=== PATIENT | female | born 1980 | race Caucasian/White ===

== ENCOUNTER 2019-04-27 04:50 | Emergency (ER) | payer MEDICAID ==
[~2019-04-27] VITALS: Ht 170.2 cm; Wt 65.0 kg
[2019-04-27] MEDS ORDERED: SODIUM CHLORIDE 0.9% 1,000 ML IV ONE (05:20)
[2019-04-27 05:57] LABS: BASOPHILS % 0.4 % (0.0-2.0); EOSINOPHILS % 2.1 % (0.0-5.0); HEMATOCRIT. 33.6 % (36.0-48.0); HEMOGLOBIN. 10.9 g/dL (12.0-16.0); LYMPHOCYTES % 13.7 % (20.0-50.0); MEAN CORPUSCULAR HEMOGLOBIN 23.3 pg (28.0-32.0); MEAN CORPUSCULAR VOLUME 72.1 fL (81.0-99.0); MEAN PLATELET VOLUME 8.7 fl (7.4-10.4); MONOCYTES % 6.1 % (2.0-8.0); NEUTROPHILS % 77.7 % (40.0-76.0); PLATELET 259 x1000/uL (130-400); RED BLOOD CELL COUNT 4.66 mill/uL (4.2-5.4)
[2019-04-27 06:00] LABS: CHLORIDE 107 mEq/L (98-107)
[2019-04-27 06:02] LABS: CLARITY URINE CLEAR (CLEAR); COLOR URINE YELLOW (YELLOW); KETONES URINE NEGATIVE (NEGATIVE); LEUKOCYTE ESTERASE URINE NEGATIVE (NEGATIVE); NITRITE URINE NEGATIVE (NEGATIVE); OCCULT BLOOD URINE TRACE (NEGATIVE); PROTEIN URINE NEGATIVE (NEGATIVE); SPECIFIC GRAVITY URINE 1.009 (1.005-1.030); UROBILINOGEN URINE 0.2 E.U./dL (0.2-1.0)
[2019-04-27 06:09] LABS: INR 1.1; PROTHROMBIN TIME 10.9 sec (9.6-11.0)
[2019-04-27] MEDS ORDERED: MORPHINE SULFATE 4 MG/ML CPJ (NOT FOR IM USE) IV ONE (06:15)
[2019-04-27] MEDS ORDERED: ONDANSETRON HCL 4MG/2ML INJ IV ONE (06:15)
[2019-04-27] MEDS ORDERED: DICYCLOMINE 10 MG/5 ML ORAL SYR PO STA (06:25)
[2019-04-27] MEDS ORDERED: MAGNESIUM/ALUMINUM HYDROXIDE/SIMETHICONE 30ML UDC PO STA (06:25)
[2019-04-27] MEDS ORDERED: FAMOTIDINE 20MG/2ML VIAL IV STA (06:25)
[2019-04-27] MEDS ORDERED: VISCOUS LIDOCAINE 2% 15 ML UDC PO STA (06:25)
[2019-04-27 06:58] LABS: HCG SCREEN NEGATIVE
[2019-04-27 09:49] VITALS: BP 122/80
== END 2019-04-27 10:02 | disposition home or self-care (01) ==
LOC: ER 06:41
DX: R10.84 Generalized abdominal pain (principal); I10 Essential (primary) hypertension; Z87.11 Personal history of peptic ulcer disease; Z88.6 Allergy status to analgesic agent
CPT/HCPCS: 36415; 74176; 80053; 81003; 81025; 83690; 84703; 85025; 85610; 96374; 96375; 99284; J2270; J2405; J3490; J7030

== ENCOUNTER 2019-05-30 08:47 | Emergency (ER) | payer MEDICAID ==
[~2019-05-30] VITALS: Ht 162.6 cm; Wt 78.0 kg
[2019-05-30] MEDS ORDERED: SUMATRIPTAN SUCCINATE 25MG TABLET PO ONE (09:30)
[2019-05-30] MEDS ORDERED: DIPHENHYDRAMINE 50MG/ML VIAL IV ONE ×2 (09:30→10:45)
[2019-05-30] MEDS ORDERED: SODIUM CHLORIDE 0.9% 1,000 ML IV ONE (09:30)
[2019-05-30] MEDS ORDERED: METOCLOPRAMIDE HCL 10MG/2ML VIAL IV ONE (09:30)
[2019-05-30 10:26] LABS: BASOPHILS % 0.5 % (0.0-2.0); EOSINOPHILS % 2.7 % (0.0-5.0); HEMATOCRIT. 32.6 % (36.0-48.0); HEMOGLOBIN. 10.7 g/dL (12.0-16.0); LYMPHOCYTES % 28.1 % (20.0-50.0); MEAN CORPUSCULAR HEMOGLOBIN 23.7 pg (28.0-32.0); MEAN CORPUSCULAR VOLUME 71.9 fL (81.0-99.0); MEAN PLATELET VOLUME 8.6 fl (7.4-10.4); MONOCYTES % 7.1 % (2.0-8.0); NEUTROPHILS % 61.6 % (40.0-76.0); PLATELET 271 x1000/uL (130-400); RED BLOOD CELL COUNT 4.53 mill/uL (4.2-5.4); RED CELL DISTRIBUTION WIDTH 16.8 % (11.6-14.6)
[2019-05-30 10:30] LABS: CHLORIDE 127 mEq/L (98-107)
[2019-05-30] MEDS ORDERED: LORAZEPAM 2MG/ML CPJ IV ONE (10:45)
[2019-05-30] MEDS ORDERED: KCL 20MEQ/100ML PREMIX 100 ML IV ONE (11:00)
[2019-05-30] MEDS ORDERED: POTASSIUM CHLORIDE 20MEQ TABLET SR PO ONE ×2 (11:00→13:30)
[2019-05-30] MEDS ORDERED: IOHEXOL-350 100 ML BOTTLE ONE (14:15)
[2019-05-30 15:50] VITALS: BP 123/74
== END 2019-05-30 15:51 | disposition home or self-care (01) ==
LOC: ER 08:47
DX: R51 Headache (principal); I10 Essential (primary) hypertension; Z86.79 Personal history of other diseases of the circulatory system; Z88.5 Allergy status to narcotic agent; Z79.899 Other long term (current) drug therapy
CPT/HCPCS: 36415; 70496; 80048; 81025; 82310; 85025; 96374; 96375; 96376; 99284; J1200; J2060; J2765; J3480; J7030; Q9967; Z7610

== ENCOUNTER 2019-06-15 00:32 | Emergency (ER) | payer MEDICAID ==
[~2019-06-15] VITALS: Ht 157.5 cm; Wt 76.0 kg
[2019-06-15] MEDS ORDERED: SODIUM CHLORIDE 0.9% 1,000 ML IV ONE (06:30)
[2019-06-15] MEDS ORDERED: KETOROLAC 30MG/ML VIAL IV STA (06:30)
[2019-06-15 08:23] LABS: CLARITY URINE CLEAR (CLEAR); COLOR URINE YELLOW (YELLOW); KETONES URINE NEGATIVE (NEGATIVE); LEUKOCYTE ESTERASE URINE NEGATIVE (NEGATIVE); NITRITE URINE NEGATIVE (NEGATIVE); OCCULT BLOOD URINE NEGATIVE (NEGATIVE); PH URINE 5.5 (4.5-8.0); PROTEIN URINE NEGATIVE (NEGATIVE); SPECIFIC GRAVITY URINE 1.017 (1.005-1.030); UROBILINOGEN URINE 0.2 E.U./dL (0.2-1.0)
[2019-06-15 09:41] LABS: BASOPHILS % 0.6 % (0.0-2.0); HEMATOCRIT. 31.8 % (36.0-48.0); HEMOGLOBIN. 10.4 g/dL (12.0-16.0); LYMPHOCYTES % 26.2 % (20.0-50.0); MEAN CORPUSCULAR HEMOGLOBIN 23.2 pg (28.0-32.0); MEAN CORPUSCULAR VOLUME 71.3 fL (81.0-99.0); MEAN PLATELET VOLUME 8.8 fl (7.4-10.4); NEUTROPHILS % 62.2 % (40.0-76.0); PLATELET 222 x1000/uL (130-400); RED BLOOD CELL COUNT 4.46 mill/uL (4.2-5.4); RED CELL DISTRIBUTION WIDTH 16.5 % (11.6-14.6)
[2019-06-15] MEDS ORDERED: ACETAMINOPHEN 325MG TABLET PO ONE (09:45)
[2019-06-15 09:47] LABS: PROTHROMBIN TIME 10.6 sec (9.6-11.0)
[2019-06-15 09:48] LABS: CHLORIDE 109 mEq/L (98-107)
[2019-06-15 10:23] LABS: HCG SCREEN NEGATIVE
[2019-06-15] MEDS ORDERED: IBUPROFEN 600MG TABLET PO ONE (10:45)
[2019-06-15 11:41] VITALS: BP 123/76
== END 2019-06-15 11:00 | disposition home or self-care (01) ==
LOC: ER 00:32
DX: R10.33 Periumbilical pain (principal); E83.51 Hypocalcemia; D64.9 Anemia, unspecified; I10 Essential (primary) hypertension; G43.909 Migraine, unspecified, not intractable, without status migrainosus; Z98.890 Other specified postprocedural states; Z98.51 Tubal ligation status; Z90.49 Acquired absence of other specified parts of digestive tract; Z88.8 Allergy status to other drugs, medicaments and biological substances; Z87.11 Personal history of peptic ulcer disease
CPT/HCPCS: 36415; 74176; 80053; 81003; 81025; 83690; 83880; 84484; 84703; 85025; 85610; 93005; 96374; 99284; J1885; J7030